=== PATIENT | male | born 1980 ===

== ENCOUNTER 2018-12-07 06:52 | Observation (INO) | payer BC ==
[~2018-12-07 06:52] MED LIST: DEXAMETHASONE 10 MG/ML VIAL IVP ONE; LR 1,000 ML IV ONE; OXYMETAZOLINE 30 ML NASAL SPRAY EACHNARE ONE; ceFAZolin 3 GM in D5W 100 ML IV ONE
[2018-12-07] MEDS ORDERED: BACITRACIN ZINC 0.5 OZ OINTTUBE TP ONE (07:12)
[2018-12-07] MEDS ORDERED: OXYMETAZOLINE 30 ML NASAL SPRAY ONE (07:12)
[2018-12-07] MEDS ORDERED: LIDO/EPI 1% **Not for Epidural 20 ML MDV ONE (07:12)
--- NOTE | 2018-12-07 07:51 | PDHPUP ---
History & Physical Update H&P update statement: This history and physical update is based on an assessment of the patient which was completed after admission or registration (within 24 hours), but prior to the surgery/procedure. H&P update: H&P reviewed & patient examined, no change in patient's condition since H&P completed
[2018-12-07] MEDS ORDERED: MIDAZOLAM 2 MG/2 ML VIAL IVP ONE (08:00)
--- NOTE | 2018-12-07 08:01 | PDANEPAE ---
ANE Past Medical History - Cardiovascular History Hx Hypertension: No Hx Arrhythmias: No Hx Chest Pain: No Hx Coronary Artery / Peripheral Vascular Disease: No Hx CHF / Valvular Disease: No Hx Palpitations: No - Pulmonary History Hx COPD: No Hx Asthma/Reactive Airway Disease: No Hx Recent Upper Respiratory Infection: No Hx Oxygen in Use at Home: No Hx Sleep Apnea: Yes Sleep Apnea Screening Result - Last Documented: Positive Pulmonary History Comment: MALKA USES C-PAP - Neurologic History Hx Cerebrovascular Accident: No Hx Seizures: No Hx Dementia: No - Endocrine History Hx Diabetes: No - Renal History Hx Renal Disorders: No - Liver History Hx Hepatic Disorders: No - Neurological & Psychiatric Hx Hx Neurological and Psychiatric Disorders: No - Cancer History Hx Cancer: No - Congenital Disorder History Hx Congenital Disorders: No - GI History Hx Gastrointestinal Disorders: No - Other Health History Other Health History: PREV NASAL FX X2. MISSING TOOTH - Chronic Pain History Chronic Pain: No - Surgical History Prior Surgeries: LT INDEX FINGER. RT KNEE ACL REPAIR. T&T ANE Review of Systems Review of Systems: - Exercise capacity METS (RN): 4 METS ANE Patient History - Allergies Allergies/Adverse Reactions: No Known Allergies Allergy (Unverified 12/05/18 12:04) - Home Medications Home Medications: NK [No Known Home Meds] 12/05/18 [Last Taken Unknown] - NPO status NPO Since - Liquids (Date): 12/06/18 NPO Since - Liquids (Time): 19:30 NPO Since - Solids (Date): 12/06/18 NPO Since - Solids (Time): 19:30 - Smoking Hx Smoking Status: Former smoker ANE Labs/Vital Signs - Vital Signs Blood Pressure: 144/93 Heart Rate: 89 Respiratory Rate: 16 O2 Sat (%): 96 Height: 190.5 cm Weight: 140.614 kg ANE Physical Exam - Airway Neck exam: FROM, short neck Mallampati Score: Class 2 Mouth exam: normal dental/mouth exam, abnormal chin - Pulmonary Pulmonary: no respiratory distress - Cardiovascular Cardiovascular: regular rate and rhythym - ASA Status ASA Status: II ANE Anesthesia Plan Anesthesia Plan: general endotracheal anesthesia Specialized Airway: video laryngoscope
[2018-12-07] MEDS ORDERED: DEXAMETHASONE 4 MG/ML VIAL ONE (08:05)
[2018-12-07] MEDS ORDERED: ROCURONIUM 100 MG/10 ML VIAL ONE ×2 (08:05→08:43)
[2018-12-07] MEDS ORDERED: ONDANSETRON 4 MG/2 ML VIAL ONE (08:05)
[2018-12-07] MEDS ORDERED: LIDOCAINE 2% 5 ML SDV ONE (08:05)
[2018-12-07] MEDS ORDERED: fentaNYL 250 MCG/5 ML INJ ONE (08:06)
[2018-12-07] MEDS ORDERED: PROPOFOL/EMULSION 500 MG/50 ML BOTTLE IV ONE (08:06)
[2018-12-07] MEDS ORDERED: SUGAMMADEX SODIUM 200 MG/2 ML VIAL IVP ONE (09:24)
[2018-12-07] MEDS ORDERED: OXYMETAZOLINE 30 ML NASAL SPRAY EACHNARE PRN (09:32)
[2018-12-07] MEDS ORDERED: ONDANSETRON 4 MG/2 ML VIAL IVP PRN ×2 (09:32→10:20)
--- NOTE | 2018-12-07 09:32 | POSTOPPROG ---
Post Op Note Date of Operation: 12/07/18 Surgeon: New Stallings Anesthesiologist: Juvenal Guardado Anesthesia: GET(General Endotracheal) Pre-op Diagnosis: septal deviation, Turbinate hypertrophy Post-op Diagnosis: same Indication: nasal obstruction Procedure: Septoplasty, bilateral SMRIT Findings: severe right septal deviation and large turbinates Inf/Abcess present in the surg proc area at time of surgery?: No Depth: Deep Incisional (Fascial) EBL: 50-100 Complications: none Specimen(s): none
[2018-12-07] MEDS ORDERED: D5W 1/2 NS 1,000 ML IV SCH (09:45)
--- NOTE | 2018-12-07 10:18 | GOP ---
[f rep st] OPERATIVE REPORT DATE OF OPERATION: 12/07/2018 SURGEON: New Stallings MD ANESTHESIA: General. PREOPERATIVE DIAGNOSIS: 1. Nasal septal deviation. 2. Inferior turbinate hypertrophy. 3. Obstructive sleep apnea syndrome. POSTOPERATIVE DIAGNOSIS: 1. Nasal septal deviation. 2. Inferior turbinate hypertrophy. 3. Obstructive sleep apnea syndrome. PROCEDURE PERFORMED: 1. Nasal septoplasty. 2. Bilateral submucous resection of inferior turbinates. FINDINGS: Severe rightward septal deviation with nearly 100% obstruction of the right side of the no se. There was external twisting of the nose as well, which was not addressed as this was not a ha tic procedure. SPECIMENS: None. ESTIMATED BLOOD LOSS: 50 mL. INDICATIONS: The patient is a 38-year-old man with a lifelong history of nasal obstruction complaint s. He has tried and failed medical therapy. He also has sleep apnea syndrome and the hope is that b y improving the nasal airway, he will not only be more comfortable during the day, but will be able t o tolerate his CPAP mask. DESCRIPTION OF PROCEDURE: Patient was taken to the OR, positively identified, placed on monitors, an d general anesthesia was induced. The nose was topically decongested with Afrin-soaked pledgets. Th e septum was infiltrated with 6 cc of 1% lidocaine with 1:100,000 epinephrine. A right maite transfix ion incision was then made. Dissection was carried along the subperichondrial and subperiosteal plan e. The bony cartilaginous junction was then bluntly divided, and dissection was carried along the le ft side of the bony nasal septum. The deviated bony portion of the nasal septum was then excised. I then had to use a small osteotome, and removed a large spur coming off the maxillary crest and pushi ng against the midportion of the inferior turbinate. Once this was removed, I was then able to free up the anterior septum along the floor of the maxillary crest where it was still deviated off to the right side of the nose. A thin strip, approximately 1 cm anterior-posterior x 5 mm superior-inferior was excised. This allowed the septum to swing to the midline where it was secured with two 4-0 PDS sutures. At this point, the nasal cavity was examined. The septum was much closer to the midline wi th significant improvement in the nasal airway. At this point, the incision was closed with interrup vini 4-0 chromic sutures followed by 4-0 plain gut mattress stitch. The inferior turbinates were then infiltrated on either side with 3 cc of local anesthetic. The subm ucosal resection was then performed with a shaver. The turbinates were then gently outfractured. A Carter splint was placed on either side of the nose anteriorly and secured with a through-a nd-through 3-0 nylon stitch. At this point, 2 Afrin-soaked pledgets were placed on the right side of the nose and 1 on the left. The strings were tied and taped to the cheek, and the case was terminat ed. discontinued. The patient tolerated the procedure well. COMPLICATIONS: None. /[id number]/MODL
[2018-12-07] MEDS ORDERED: PROMETHAZINE HCL 25 MG/ML INJ IVP PRN (10:20)
[2018-12-07] MEDS ORDERED: fentaNYL 100 MCG/2 ML INJ IVP PRN (10:20)
[2018-12-07] MEDS ORDERED: LABETALOL HCL 5 MG/ML 20 ML MDV IVP PRN (10:20)
[2018-12-07] MEDS ORDERED: NALOXONE HCL 0.4 MG/ML INJ IVP PRN (10:20)
[2018-12-07] MEDS ORDERED: NS 500 ML IV PRN (10:20)
--- NOTE | 2018-12-07 10:21 | POSTANESTH ---
Post Anesthetic Evaluation Cardiovascular Status: Normal, Stable Respiratory Status: Normal, Stable Level of Consciousness/Mental Status: Can Participate in Eval Pain Control: Adequate, Prn Tx Ordered Nausea/Vomiting Control: Adequate, Prn Tx Ordered Complications Possibly Related to Anesthesia: None Noted
[2018-12-07] MEDS ORDERED: OXYCODONE/APAP 5/325 TAB ONE (10:40)
[2018-12-07] MEDS: OXYCODONE/APAP 5/325 TAB PO PRN ×3 (10:41→15:48)
[2018-12-07] MEDS: ceFAZolin 2 GM/DEXTROSE 100 ML IV SCH ×2 (13:11→21:06)
--- NOTE | 2018-12-07 17:50 | SOAPPROG ---
SOAP Progress Note Assessment/Plan: Assessment: Pt with newly recognized HTN, with SDP in the 160's. The hospitalist will be seeing him this evening to make a treatment plan for him going forward. Plan: Likely discharge in the am. Follow up in one week for removal of nasal splints and again in three weeks. 12/07/18 17:47 Subjective: Pt has expected level of discomfort. Some oozing of bleed, packs removed . Objective: Vital Signs Temp Pulse Resp BP Pulse Ox 36.6 C 88 18 161/97 H 93 12/07/18 15:41 12/07/18 15:41 12/07/18 15:51 12/07/18 15:41 12/07/18 15:51 12/06/18 12/07/18 12/08/18 05:59 05:59 05:59 Intake Total 1000 Output Total 470 Balance 530 Nasal pack removed. No active bleeding ICD10 Worksheet Patient Problems: Problems Problem Status Onset Nose septum deviation Acute Sleep apnea Acute - ICD10 Problem Qualifiers (1) Sleep apnea (2) Nose septum deviation
--- NOTE | 2018-12-07 18:06 | HOSPPROG ---
Hospitalist Progress Note Assessment/Plan: We have been consulted by ENT for mgmt of HTN. Please refer to our HEADER MACHINE OPERATOR's consultation note. Briefly this is a 38 yo who had a Septoplasty today. He is noted to have HTN. He is obese. He has a hx of MALKA. #HTN, unclear what his BP has been at home -agree with BP mgmt, HCTZ per our HEADER MACHINE OPERATOR -would f/u with his PCP -check for risk factors, DM, to determine need for ANH-I #Obesity #MALKA, CPAP #s/p Septoplasty, mgmt per primary Subjective: BP is elevated Objective: Vital Signs Temp Pulse Resp BP Pulse Ox 36.6 C 88 18 161/97 H 93 12/07/18 15:41 12/07/18 15:41 12/07/18 15:51 12/07/18 15:41 12/07/18 15:51 12/06/18 12/07/18 12/08/18 05:59 05:59 05:59 Intake Total 1000 Output Total 470 Balance 530 - Physical Exam Constitutional: no apparent distress Eyes: PERRL Ears, Nose, Mouth, Throat: moist mucous membranes Respiratory: no respiratory distress Neurologic: AAOx3 Psychiatric: interacting appropriately, not anxious, not encephalopathic Lymph, Heme, Immunologic: No petechiae ICD10 Worksheet Patient Problems: Problems Problem Status Onset Nose septum deviation Acute Sleep apnea Acute
--- NOTE | 2018-12-07 18:09 | PDHOSCONS ---
History and Physical - Chief Complaint Nasal Septoplasty and BSMRIT - History of Present Illness ENT Dr. Alvarez has asked hospital medicine to consult patient for hypertension and obesity. This is a 38 y/o male with history of obstructive sleep apnea presenting for a nasal septoplasty and bilateral submucous resection of inferior turbinates ( BSMRIT) performed today. He understands this most likely will not cure his sleep apnea, but instead allow him to tolerate the face mask more easily. Past Medical History 1. Obesity 2. Hypertension 3. Right partial rotator cuff tear Past Surgical History 1. ACL tendon repair 2. Finger tendon repair Social 1. Works in IT 2. Denies tobacco or illicit drug use. Rarely drinks alcohol. History Information - Allergies/Home Medication List Allergies/Adverse Reactions: No Known Allergies Allergy (Verified 12/07/18 11:51) Home Medications: Herbals/Supplements -Info Only 1 ea PO DAILY 12/07/18 [Last Taken Unknown] I have personally reviewed and updated: family history, medical history, social history, surgical history Past Medical History: See HPI list - Surgical History Additional surgical history: See HPI list - Family History Positive for: non-pertinent - Social History Smoking Status: Former smoker Alcohol Use: Rarely Drug Use: None Review of Systems Review of Systems: ROS: 10pt was reviewed & negative except for what was stated in HPI & below Constitutional: Reports: other (Weight gain) EENMT: Reports: nose pain (Surgical) Cardiac: Reports: no symptoms Respiratory: Reports: no symptoms Gastrointestinal: Reports: no symptoms Genitourinary: Reports: no symptoms Muscolosketal: Reports: no symptoms Skin: Reports: no symptoms Neurological: Reports: headache Hematologic/Lymphatic: Reports: no symptoms Immunologic/Allergy: Reports: no symptoms, other Physical Exam Physical Exam: Case discussed with admitting physician, Dr. Nirmal Jessica Temp Pulse Resp BP Pulse Ox 36.6 C 88 18 161/97 H 93 12/07/18 15:41 12/07/18 15:41 12/07/18 15:51 12/07/18 15:41 12/07/18 15:51 O2 (L/minute) 1 Constitutional: no apparent distress, appears nourished, uncomfortable (Rates surgical pain 4/10 after receiving percocet) Eyes: PERRL, anicteric sclera, EOMI Ears, Nose, Mouth, Throat: moist mucous membranes, hearing normal, ears appear normal, no oral mucosal ulcers, other (Surgical dressing over nose) Cardiovascular: regular rate and rhythym, no murmur, rub, or gallop, No edema Peripheral Pulses: 2+: dorsalis-pedis (R) (Radial 2+), dorsalis-pedis (L) ( Radial 2+) Respiratory: no respiratory distress, no rales or rhonchi, clear to auscultation Gastrointestinal: normoactive bowel sounds, soft, non-tender abdomen, no palpable masses Genitourinary: no bladder fullness, no bladder tenderness Skin: warm, normal color, no rashes or abrasions, no fluctuance, no induration, No mottled Musculoskeletal: full muscle strength, no muscle tenderness, normal joint ROM, no joint effusions Neurologic: AAOx3, sensation intact bilaterally, CN II-XII Intact Psychiatric: interacting appropriately, not anxious, not encephalopathic, thought process linear Lymph, Heme, Immunologic: no cervical LAD, no supraclavicular LAD Assessment & Plan Plan: 38 y/o male POD #0 with nasal septoplasty and turbinate reduction surgery performed for the sake of the ease wearing the face mask d/t his severe obstructive sleep apnea. #Post-op care: pain management PO PRN, IV abx per surgeon's recommendation. Most likely discharge tomorrow. #Obesity: The pt is currently exercising 4x/week and attempting weight loss - his target goal is 250 lbs. Checking an A1c as he is at a higher risk of developing and/or having diabetes. #Hypertension: Per pt, his normal BP is 120s/80s. Placed him on a low-dose HCTZ. Diet: Regular VTE ppx: SCDs Code: Full Dispo: Admit to obs
[2018-12-07] MEDS: HYDROCHLOROTHIAZIDE 12.5 MG CAP PO SCH (18:24)
[2018-12-08] MEDS: ceFAZolin 2 GM/DEXTROSE 100 ML IV SCH (05:19)
[2018-12-08 07:12] VITALS: BP 125/76
[2018-12-08] MEDS: HYDROCHLOROTHIAZIDE 12.5 MG CAP PO SCH (08:52)
--- NOTE | 2018-12-08 09:58 | HOSPPROG ---
Hospitalist Progress Note Assessment/Plan: We have been consulted by ENT for mgmt of HTN. 38 yo who had a Septoplasty He is noted to have HTN. He is obese. He has a hx of MALKA. #HTN, -resolved -unclear what his BP has been at home -agree with BP mgmt -rec DC home with BP med -would f/u with his PCP -hA1c 5.4 #Obesity #MALKA, CPAP #s/p Septoplasty, mgmt per primary #DC per ENT Subjective: Feeling better. Some pain. Objective: Vital Signs Temp Pulse Resp BP Pulse Ox 36.4 C 91 16 125/76 H 93 12/08/18 07:11 12/08/18 07:11 12/08/18 07:11 12/08/18 08:52 12/08/18 07:11 12/07/18 12/08/18 12/09/18 05:59 05:59 05:59 Intake Total 3699 Output Total 470 Balance 3229 - Physical Exam Constitutional: appears nourished, obese, uncomfortable Eyes: PERRL, anicteric sclera, EOMI Ears, Nose, Mouth, Throat: moist mucous membranes, hearing normal, ears appear normal Cardiovascular: No JVD, No tachycardia, No edema Respiratory: no respiratory distress, no rales or rhonchi, reduced air movement Gastrointestinal: normoactive bowel sounds, No tenderness, No ascites Skin: warm, normal color, erythema Musculoskeletal: normal joint ROM, no joint effusions, generalized weakness Neurologic: AAOx3 Psychiatric: interacting appropriately, not anxious, not encephalopathic, thought process linear ICD10 Worksheet Patient Problems: Problems Problem Status Onset Sleep apnea Acute Nose septum deviation Acute
--- NOTE | 2018-12-08 10:40 | PDDCSUM ---
Discharge Summary Discharge Summary: Pt POD#1 s/p NSR, SMRT by Dr. Stallings Doing well. Pain controlled Hospitalist started pt on HCTZ for BP Okay for d/c follow up next week in clinic
== END 2018-12-08 11:38 | disposition home or self-care (01) ==
LOC: F3N 06:52 → F3E 07:20
PROVIDERS: ADMIT Otolaryngology; ATTEND Otolaryngology
DX: J34.2 Deviated nasal septum (principal); J34.3 Hypertrophy of nasal turbinates; G47.33 Obstructive sleep apnea (adult) (pediatric); R03.0 Elevated blood-pressure reading, without diagnosis of hypertension; E66.9 Obesity, unspecified; Z87.891 Personal history of nicotine dependence
CPT/HCPCS: 30140; 30520; G0378; J0690; J1100; J2250; J2405; J2704; J3010